=== PATIENT | female | born 1955 | race African-American/Black ===

== ENCOUNTER 2018-07-26 21:29 | Emergency (ER) | payer OTHER, BC ==
[2018-07-26 22:29] VITALS: TEMP 98.1; BMI 43.2
--- NOTE | 2018-07-27 00:03 | PDOC ---
History of Present Illness - General History Source: Patient Exam Limitations: No Limitations - History of Present Illness Initial Comments: 07/27/18 00:38 The patient is a 63 year old female with a past medical history of insulin dependent diabetes, cardiac stent, HTN, and HLD here today for evaluation of dizziness. The patient reports that she got up from a supine position when she suddenly felt the room spinning, cold sweats, began shaking, and felt nauseous. She reports having one similar episode like this current one years and reports being hospitalized for vertigo. She reports that her symptoms are worse when she turns her head especially to the right. Patient denies headache. Denies fever. Denies chest pain, shortness of breath. Denies vomiting, diarrhea, abdominal pain. Allergies: NKA PCP: Fallon Wells <Thuan Lundy - Last Filed: 07/27/18 00:41> <Elsy Fernández - Last Filed: 07/27/18 02:19> - General Chief Complaint: Lightheaded Stated Complaint: DIZZINESS Time Seen by Provider: 07/27/18 00:01 Past History <Thuan Lundy - Last Filed: 07/27/18 00:41> - Past Medical History Cardiac Disorders: Yes (STENT X 1) COPD: No Diabetes: Yes - Surgical History Cardiac Surgery: Yes (1 stent) - Suicide/Smoking/Psychosocial Hx Smoking Status: No Smoking History: Never smoked Number of Cigarettes Smoked Daily: 0 Hx Alcohol Use: No <Elsy Fernánedz - Last Filed: 07/27/18 02:19> - Past Medical History Allergies/Adverse Reactions: Allergies Allergy/AdvReac Type Severity Reaction Status Date / Time No Known Allergies Allergy Verified 07/26/18 22:29 Home Medications: Ambulatory Orders Allopurinol [Zyloprim -] 100 mg PO DAILY 08/14/12 Insulin (LOG) Aspart [NovoLOG -] 0 unit SQ PRN 08/14/12 Insulin Detemir [Levemir Flexpen] 60 unit SQ AM 08/14/12 Aspirin [Aspirin EC] 325 mg PO DAILY 10/14/12 Atenolol [Tenormin -] 25 mg PO DAILY 10/14/12 Insulin (Levemir) [Levemir Flexpen -] 50 units SQ HS 10/14/12 Isoniazid 300 mg PO DAILY 10/14/12 Pyridoxine HCl 50 mg PO DAILY 10/14/12 Simvastatin [Zocor -] 20 mg PO HS 10/14/12 metFORMIN HCL [Glucophage] 1,000 mg PO BID 10/14/12 Enalapril Maleate [Vasotec -] 10 mg PO DAILY 03/10/13 Meclizine HCl [Antivert -] 25 mg PO TID PRN #15 tablet 07/27/18 Review of Systems - Review of Systems Able to Perform ROS?: Yes Comments:: 07/27/18 00:38 GENERAL/CONSTITUTIONAL: +diaphoresis. No fever or chills. No weakness. HEAD, EYES, EARS, NOSE AND THROAT: No change in vision. No ear pain or discharge. No sore throat. GASTROINTESTINAL: +nausea. No vomiting, diarrhea or constipation. GENITOURINARY: No dysuria, frequency, or change in urination. CARDIOVASCULAR: No chest pain or shortness of breath. RESPIRATORY: No cough, wheezing, or hemoptysis. MUSCULOSKELETAL: No joint or muscle swelling or pain. No neck or back pain. SKIN: No rash NEUROLOGIC: +vertigo. No headache, loss of consciousness, or change in strength/ sensation. ENDOCRINE: No increased thirst. No abnormal weight change. HEMATOLOGIC/LYMPHATIC: No anemia, easy bleeding, or history of blood clots. ALLERGIC/IMMUNOLOGIC: No hives or skin allergy. <Thuan Lundy - Last Filed: 07/27/18 00:41> *Physical Exam - Vital Signs Last Vital Signs Temp Pulse Resp BP Pulse Ox 98.1 F 88 18 142/76 98 07/26/18 22:28 07/26/18 22:28 07/26/18 22:28 07/26/18 22:28 07/26/18 22:28 - Physical Exam Comments: 07/27/18 00:41 Constitutional: Awake, alert, oriented. No acute distress. Mild obesity. Head: Normocephalic. Atraumatic Eyes: +right horizontal PERRL. EOMI. Conjunctivae are not pale. ENT: Mucous membranes are moist and intact. Posterior pharynx without exudates or erythema. Uvula midline. Neck: Supple. Full ROM. No lymphadenopathy. Cardiovascular: Regular rate. Regular rhythm. S1, S2 regular. Distal pulses are 2+ and symmetric. Pulmonary/Chest: No evidence of respiratory distress. Clear to auscultation bilaterally No wheezing, rales or rhonchi. Abdominal: Soft and non-distended. There is no tenderness. No rebound, guarding or rigidity. No organomegaly. No palpable masses. Good bowel sounds. Back: No CVA tenderness. Musculoskeletal: No edema. No cyanosis. No clubbing. Full range of motion in all extremities. Nocalf tenderness. Radial/pedal pulses are intact and 2+ bilaterally Skin: Skin is warm and dry. No petechiae. No purpura. Neurological: Alert and oriented to person, place, and time. Cranial nerves II -XII are grossly intact. Normal speech. Strength is grossly symmetric. No sensory deficits. Psychiatric: Good eye contact. Normal interaction, affect and behavior. <Thuan Lundy - Last Filed: 07/27/18 00:41> - Vital Signs Last Vital Signs Temp Pulse Resp BP Pulse Ox 98.1 F 88 18 142/76 98 07/26/18 22:28 07/26/18 22:28 07/26/18 22:28 07/26/18 22:28 07/26/18 22:28 <Elsy Fernández - Last Filed: 07/27/18 02:19> Heart Score/ECG Review - ECG Intrepretation Comment:: 07/27/18 01:39 sinus at 62, 1st degree av block, nl axis, baseline artifact, no acute st changes <Elsy Fernández - Last Filed: 07/27/18 02:19> ED Treatment Course - LABORATORY CBC & Chemistry Diagram: 07/27/18 00:51 07/27/18 00:51 <Elsy Fernández - Last Filed: 07/27/18 02:19> Medical Decision Making - Medical Decision Making 07/27/18 00:21 a/p: 63yo female with a vertiginous episode today -hx of vertigo in the past -Rward gaze with nystagmus -similar to prior episode -no amaya, no paresthesias, dizziness with change in position, no cp/sob -will send labs -hx of dm -will obtain ekg -no focal neuro findings -will give reglan and meclizine -will monitor and reassess 07/27/18 01:45 pt is not orthostatic pt states feeling better requesting to eat- given po challenge states vertigo feeling is improving 07/27/18 02:12 pt ambulatory with minimal support- uses a cane at home feels better no longer with vertigo or nystagmus tolerated po requesting to go home <Elsy Fernández - Last Filed: 07/27/18 02:19> *DC/Admit/Observation/Transfer - Attestations Scribe Attestion: 07/27/18 00:41 Documentation prepared by FABIANA Calles, acting as medical coding instructor for Elsy Fernández DO. <Thuan Lundy - Last Filed: 07/27/18 00:41> - Discharge Dispostion Decision to Admit order: No - Attestations Physician Attestion: 07/27/18 02:19 I, Dr. Elsy Fernández DO, attest that this document has been prepared under my direction and personally reviewed by me in its entirety. I further attest, that it accurately reflects all work, treatment, procedures and medical decision -making performed by me. <Elsy Fernández - Last Filed: 07/27/18 02:19> Diagnosis at time of Disposition: Vertigo - Discharge Dispostion Disposition: HOME Condition at time of disposition: Stable - Prescriptions Prescriptions: Meclizine HCl [Antivert -] 25 mg PO TID PRN #15 tablet PRN Reason: Vertigo - Referrals Referrals: Javi Handley MD [Staff Physician] - - Patient Instructions Printed Discharge Instructions: DI for Vertigo Additional Instructions: Please drink plenty of fluids. Please take all medications as prescribed. Please follow up with the ENT physician for further evaluation of your vertigo. Please also follow up with your PMD in 2-3 days for a repeat evaluation. Please return to the ED with any further concerns or worsening of symptoms.
[2018-07-27] MEDS ORDERED: METOCLOPRAMIDE HCL INJECTION 10 MG/2 ML VIAL IVPUSH ONE (00:19)
[2018-07-27] MEDS ORDERED: MECLIZINE HCL 25 MG TABLET (FP) PO ONE (00:19)
[2018-07-27] MEDS ORDERED: SODIUM CHLORIDE 0.9% 1000 ML INFUS.BAG IV ONE (00:19)
[2018-07-27] MEDS ORDERED: METOCLOPRAMIDE HCL INJECTION 10 MG/2 ML VIAL ONE (00:42)
[2018-07-27] MEDS ORDERED: MECLIZINE HCL 25 MG TABLET (FP) ONE (01:05)
[2018-07-27 01:09] LABS: BASO % 0.3 % (0-2.0); EOS % 0.4 % (0-4.5); HEMATOCRIT 39.1 % (32.4-45.2); HEMOGLOBIN 13.2 GM/dL (10.7-15.3); MCH 26.7 pg (25.7-33.7); MCHC 33.8 g/dl (32.0-36.0); MEAN CELL VOLUME 79.1 fl (80-96); MEAN PLT VOLUME 8.8 fl (7.5-11.1); MONO % 4.5 % (3.8-10.2); NEUT % 79.8 % (42.8-82.8); PLATELET COUNT 229 K/MM3 (134-434); RBC 4.94 M/mm3 (3.60-5.2); RDW 15.5 % (11.6-15.6)
[2018-07-27 01:32] LABS: ALBUMIN 3.4 g/dl (3.4-5.0); ALK PHOS 97 U/L (45-117); ANION GAP 8 MMOL/L (8-16); BILIRUBIN,TOTAL 0.5 mg/dL (0.2-1); BLOOD UREA NITROGEN 16 mg/dL (7-18); CHLORIDE 105 mmol/L (98-107); CO2 25 mmol/L (21-32); CREATININE 0.7 mg/dL (0.55-1.3); GLUCOSE,RANDOM 181 mg/dL (74-106); MAGNESIUM 1.6 mg/dL (1.8-2.4); POTASSIUM 4.6 mmol/L (3.5-5.1); SGOT/AST 18 U/L (15-37); SGPT/ALT 21 U/L (13-61); SODIUM 138 mmol/L (136-145); TOT PROT 7.3 g/dl (6.4-8.2)
[2018-07-27] MEDS ORDERED: MAGNESIUM SULF 50% (8.12 MEQ/2 ML-1 GM VIAL) IVPB ONE (01:37)
[2018-07-27] MEDS ORDERED: MAGNESIUM 1GM/D5W - 1 GM/100 ML IVPB IVPB ONE (01:41)
[2018-07-27 02:01] VITALS: BP 145/81; PULSE 81
--- NOTE | 2018-07-27 11:50 | EKG ---
Test Reason : Blood Pressure : / mmHG Vent. Rate : 087 BPM Atrial Rate : 087 BPM P-R Int : 232 ms QRS Dur : 130 ms QT Int : 398 ms P-R-T Axes : 034 039 -09 degrees QTc Int : 478 ms SINUS RHYTHM WITH 1ST DEGREE A-V BLOCK NON-SPECIFIC INTRA-VENTRICULAR CONDUCTION BLOCK ABNORMAL ECG WHEN COMPARED WITH ECG OF 14-AUG-2012 09:35, QUESTIONABLE CHANGE IN QRS DURATION Confirmed by CARINE KATE, ROSE ([id number]) on 07/27/2018 11:50:48 AM Referred By: Confirmed By:RSOE HAWK MD
== END 2018-07-27 02:56 | disposition home or self-care (01) ==
LOC: JER 21:29
PROC: 3E033GC Introduction of Other Therapeutic Substance into Peripheral Vein, Percutaneous Approach (ICD-10-PCS; principal; 2018-07-26)
PROC: 3E033GC Introduction of Other Therapeutic Substance into Peripheral Vein, Percutaneous Approach (ICD-10-PCS; 2018-07-26)
DX: R42 Dizziness and giddiness (principal); I25.10 Atherosclerotic heart disease of native coronary artery without angina pectoris; I10 Essential (primary) hypertension; Z95.5 Presence of coronary angioplasty implant and graft; E11.9 Type 2 diabetes mellitus without complications; Z79.4 Long term (current) use of insulin; E78.5 Hyperlipidemia, unspecified
CPT/HCPCS: 36415; 80053; 82550; 83735; 84484; 85025; 93005; 93010; 99281-25; J7030

== ENCOUNTER 2019-01-12 14:01 | Emergency (ER) | payer OTHER, BC ==
[2019-01-12 14:08] VITALS: BP 132/60; PULSE 79; TEMP 97.6; BMI 43.2
--- NOTE | 2019-01-12 14:09 | PDOC ---
Rapid Medical Evaluation Time Seen by Provider: 01/12/19 14:05 Medical Evaluation: Allergies Allergy/AdvReac Type Severity Reaction Status Date / Time No Known Allergies Allergy Verified 01/12/19 14:06 01/12/19 14:06 Patient presents to ED with complaints of: left flank pain x 3 days worse this am, no other complaints , hx of kidney stones w/ lithotripsy, seen bt dat in the past, worse with movement Patient on brief exam: no cva tenderness, left low back pain and mild sciatica tenderness I have ordered: labs urine, Patient to proceed to the ED Discharge Disposition - Diagnosis Left-sided back pain - Referrals - Patient Instructions - Post Discharge Activity
[2019-01-12 14:52] LABS: BASO % 0.5 % (0-2.0); EOS % 1.6 % (0-4.5); HEMATOCRIT 38.5 % (32.4-45.2); HEMOGLOBIN 13.2 GM/dL (10.7-15.3); LYMPH % 24.5 % (8-40); MCH 27.2 pg (25.7-33.7); MCHC 34.4 g/dl (32.0-36.0); MEAN CELL VOLUME 78.9 fl (80-96); MEAN PLT VOLUME 8.4 fl (7.5-11.1); MONO % 7.1 % (3.8-10.2); NEUT % 66.3 % (42.8-82.8); PLATELET COUNT 248 K/MM3 (134-434); RBC 4.88 M/mm3 (3.60-5.2); RDW 15.9 % (11.6-15.6); WHITE BLOOD COUNT 9.1 K/mm3 (4.0-10.0)
[2019-01-12 15:10] LABS: ALBUMIN 3.5 g/dl (3.4-5.0); ALK PHOS 106 U/L (45-117); ANION GAP 8 MMOL/L (8-16); CALCIUM 9.7 mg/dL (8.5-10.1); CHLORIDE 103 mmol/L (98-107); CO2 28 mmol/L (21-32); CREATININE 0.7 mg/dL (0.55-1.3); GLUCOSE,RANDOM 133 mg/dL (74-106); POTASSIUM 4.6 mmol/L (3.5-5.1); SGOT/AST 18 U/L (15-37); SGPT/ALT 22 U/L (13-61); SODIUM 139 mmol/L (136-145); TOT PROT 7.2 g/dl (6.4-8.2)
--- NOTE | 2019-01-12 15:10 | PDOC ---
History of Present Illness - General Chief Complaint: Pain, Acute Stated Complaint: horrific pain in left side Time Seen by Provider: 01/12/19 14:05 History Source: Patient Exam Limitations: No Limitations - History of Present Illness Initial Comments: 01/12/19 16:35 64 yo F with a hx of nephrolithiasis, DM (on insulin), and CAD (s/p 2 stents; followed by Dr. Hines with recent stress test normal within 1 year) presents to the emergency department with left flank pain that has been ongoing for 3 days since her return from a cruise ship last week that experienced rough water. Per the patient, the pain feels similar to her previous kidney stone 10 years ago. The pain is located in the left flank without radiation and is exacerbated with movement. Denies the following: fever, chills, nausea, vomiting , chest pain, SOB, abdominal pain, dysuria, hematuria, diarrhea, hematochezia, leg pain/swelling, and traumatic msk event. Endorses increased urinary frequency. Allergies: NKDA Past History - Past Medical History Allergies/Adverse Reactions: Allergies Allergy/AdvReac Type Severity Reaction Status Date / Time No Known Allergies Allergy Verified 01/12/19 14:06 Home Medications: Ambulatory Orders Allopurinol [Zyloprim -] 100 mg PO DAILY 08/14/12 Insulin (LOG) Aspart [NovoLOG -] 0 unit SQ PRN 08/14/12 Insulin Detemir [Levemir Flexpen] 60 unit SQ AM 08/14/12 Aspirin [Aspirin EC] 325 mg PO DAILY 10/14/12 Atenolol [Tenormin -] 25 mg PO DAILY 10/14/12 Insulin (Levemir) [Levemir Flexpen -] 50 units SQ HS 10/14/12 Isoniazid 300 mg PO DAILY 10/14/12 Pyridoxine HCl 50 mg PO DAILY 10/14/12 Simvastatin [Zocor -] 20 mg PO HS 10/14/12 metFORMIN HCL [Glucophage] 1,000 mg PO BID 10/14/12 Enalapril Maleate [Vasotec -] 10 mg PO DAILY 03/10/13 Meclizine HCl [Antivert -] 25 mg PO TID PRN #15 tablet 07/27/18 Acetaminophen [Tylenol -] 1,000 mg PO Q6H #30 tablet 01/12/19 Cardiac Disorders: Yes (STENT X 1) COPD: No Diabetes: Yes Kidney Stones: Yes - Surgical History Cardiac Surgery: Yes (1 stent) - Suicide/Smoking/Psychosocial Hx Smoking Status: No Smoking History: Never smoked Number of Cigarettes Smoked Daily: 0 Hx Alcohol Use: No Drug/Substance Use Hx: No Review of Systems - Review of Systems Able to Perform ROS?: Yes Is the patient limited Bahamian proficient: No Constitutional: No: Chills, Diaphoresis, Fever, Other HEENTM: No: Ear Pain, Nose Pain, Throat Pain, Mouth Pain Respiratory: No: Cough, Shortness of Breath, Hemoptysis Cardiac (ROS): No: Chest Pain, Lightheadedness, Palpitations, Syncope, Chest Tightness ABD/GI: No: Constipated, Diarrhea, Nausea, Rectal Bleeding, Vomiting, Tarry Stools : Yes: Frequency, Flank Pain. No: Burning, Dysuria, Hematuria, Incontinence Musculoskeletal: No: Back Pain, Joint Pain, Neck Pain Integumentary: No: Bruising, Erythema, Rash Neurological: No: Headache, Numbness, Tingling, Tremors Psychiatric: No: Change in Appetite Endocrine: No: Unexplained Weight Gain Hematologic/Lymphatic: No: Anemia *Physical Exam - Vital Signs Last Vital Signs Temp Pulse Resp BP Pulse Ox 97.6 F 79 16 132/60 99 01/12/19 14:05 01/12/19 14:05 01/12/19 14:05 01/12/19 14:05 01/12/19 14:05 - Physical Exam General Appearance: Yes: Nourished, Appropriately Dressed. No: Apparent Distress, Intoxicated HEENT: positive: EOMI, NATAN, Normal Voice, Symmetrical, Pharynx Normal, Hearing Grossly Normal. negative: Pale Conjunctivae, Scleral Icterus (R), Scleral Icterus (L), Muffled/Hoarse voice, Pharyngeal Erythema, Tonsillar Exudate, Tonsillar Erythema, Nasal Congestion, Rhinorrhea, Sinus Tenderness, Excessive drooling Neck: positive: Trachea midline, Supple. negative: Tender, Lymphadenopathy (R) , Lymphadenopathy (L), Tender lateral, Tender midline Respiratory/Chest: positive: Lungs Clear, Normal Breath Sounds. negative: Chest Tender, Respiratory Distress, Accessory Muscle Use, Crackles, Rales, Rhonchi, Stridor, Wheezing Cardiovascular: positive: Regular Rhythm, Regular Rate, S1, S2. negative: Systolic Murmur Gastrointestinal/Abdominal: positive: Normal Bowel Sounds, Tender (LLQ), Flat, Soft. negative: Distended, Guarding, Rebound Lymphatic: negative: Adenopathy Musculoskeletal: positive: Normal Inspection, CVA Tenderness (L), Muscle Spasm ( left side lower). negative: CVA Tenderness (R), Vertebral Tenderness Extremity: positive: Normal Capillary Refill, Normal Inspection, Normal Range of Motion. negative: Tender, Swelling, Calf Tenderness Integumentary: positive: Normal Color, Dry, Warm. 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, Fully Oriented, Alert, Normal Mood/ Affect, Normal Response, Motor Strength 09/03 ED Treatment Course - LABORATORY CBC & Chemistry Diagram: 01/12/19 14:27 01/12/19 14:27 - ADDITIONAL ORDERS Additional order review: Laboratory Results 01/12/19 01/12/19 14:27 14:27 Sodium 139 Potassium 4.6 Chloride 103 Carbon Dioxide 28 Anion Gap 8 BUN 14.0 Creatinine 0.7 Est GFR (CKD-EPI)AfAm 106.87 Est GFR (CKD-EPI)NonAf 92.21 Random Glucose 133 H Lactic Acid 1.5 Calcium 9.7 Total Bilirubin 1.0 AST 18 ALT 22 Alkaline Phosphatase 106 Total Protein 7.2 Albumin 3.5 01/12/19 14:27 RBC 4.88 MCV 78.9 L MCHC 34.4 RDW 15.9 H MPV 8.4 Neutrophils % 66.3 Lymphocytes % 24.5 D Monocytes % 7.1 Eosinophils % 1.6 D Basophils % 0.5 Medical Decision Making - Medical Decision Making 64 yo F with a hx of nephrolithiasis, DM (on insulin), and CAD (s/p 2 stents; followed by Dr. Hines with recent stress test normal within 1 year) presents to the emergency department with left flank pain that has been ongoing for 3 days since her return from a cruise ship last week that experienced rough water. Initial vitals: Initial Vital Signs Temp Pulse Resp BP Pulse Ox 97.6 F 79 16 132/60 99 01/12/19 14:05 01/12/19 14:05 01/12/19 14:05 01/12/19 14:05 01/12/19 14:05 Work up ddx: msk spasm vs nephrolithiasis vs colitis vs diverticulitits vs UTI Laboratory Tests 01/12/19 01/12/19 01/12/19 14:27 14:27 14:27 WBC 9.1 RBC 4.88 Hgb 13.2 Hct 38.5 MCV 78.9 L MCH 27.2 MCHC 34.4 RDW 15.9 H Plt Count 248 MPV 8.4 Absolute Neuts (auto) 6.0 Neutrophils % 66.3 Lymphocytes % 24.5 D Monocytes % 7.1 Eosinophils % 1.6 D Basophils % 0.5 Nucleated RBC % 0 Sodium 139 Potassium 4.6 Chloride 103 Carbon Dioxide 28 Anion Gap 8 BUN 14.0 Creatinine 0.7 Est GFR (CKD-EPI)AfAm 106.87 Est GFR (CKD-EPI)NonAf 92.21 Random Glucose 133 H Lactic Acid 1.5 Calcium 9.7 Total Bilirubin 1.0 AST 18 ALT 22 Alkaline Phosphatase 106 Troponin I < 0.02 Total Protein 7.2 Albumin 3.5 Urine Color Urine Appearance Urine pH Ur Specific Watson Urine Protein Urine Glucose (UA) Urine Ketones Urine Blood Urine Nitrite Urine Bilirubin Urine Urobilinogen Ur Leukocyte Esterase 01/12/19 16:03 WBC RBC Hgb Hct MCV MCH MCHC RDW Plt Count MPV Absolute Neuts (auto) Neutrophils % Lymphocytes % Monocytes % Eosinophils % Basophils % Nucleated RBC % Sodium Potassium Chloride Carbon Dioxide Anion Gap BUN Creatinine Est GFR (CKD-EPI)AfAm Est GFR (CKD-EPI)NonAf Random Glucose Lactic Acid Calcium Total Bilirubin AST ALT Alkaline Phosphatase Troponin I Total Protein Albumin Urine Color Yellow Urine Appearance Clear Urine pH 5.5 Ur Specific Watson 1.016 Urine Protein Negative Urine Glucose (UA) Negative Urine Ketones Negative Urine Blood Negative Urine Nitrite Negative Urine Bilirubin Negative Urine Urobilinogen 0.2 Ur Leukocyte Esterase Negative labs within normal limits. CT abdomen and pelvis shows diverticulosis. no stones or infection Patient received cyclobenzaprine and toradol with significant improvement Given lidocaine patch and prescription for tylenol. Patient likely has MSK spasm given symptoms and negative work up with improvement with muscle relaxant. Patient to be discharged. LLQ tenderness resolved on re-examination and able to ambulate on her own volition. Dispo: Discharge *DC/Admit/Observation/Transfer Diagnosis at time of Disposition: Left-sided back pain, Muscle spasm - Discharge Dispostion Disposition: HOME Condition at time of disposition: Improved Decision to Admit order: No - Prescriptions Prescriptions: Acetaminophen [Tylenol -] 1,000 mg PO Q6H #30 tablet - Referrals Referrals: [facility] [place] Group] - Patient Instructions Printed Discharge Instructions: DI for Muscle Spasm Additional Instructions: You were seen in the emergency department for the evaluation of back pain, Your labs were within normal limits. Your imaging did not show acute process. You have a muscle spasm likely secondary to sudden jerking movements. Please take the tylenol as prescribed. 1000 mg every 6 hours as needed for pain for 1 week. Please do not take ibuprofen. Please return to the emergency department if you have worsening symptoms or new concerning symptoms such as burning urination, fevers, and uncontrollable nausea and vomiting. - Post Discharge Activity
[2019-01-12] MEDS ORDERED: KETOROLAC TROMETHAMINE 30 MG/1 ML VIAL IM ONE (15:12)
[2019-01-12] MEDS ORDERED: CYCLOBENZAPRINE HCL 10 MG TABLET (FP) PO ONE (15:36)
[2019-01-12] MEDS ORDERED: KETOROLAC TROMETHAMINE 30 MG/1 ML VIAL ONE (15:49)
[2019-01-12] MEDS ORDERED: CYCLOBENZAPRINE HCL 10 MG TABLET (FP) ONE (15:49)
--- NOTE | 2019-01-12 16:17 | PDOC ---
Documentation entered by Shruthi Lilly SCRIBE, acting as scribe for Jake Tinajero MD. Jake Tinajero MD: This documentation has been prepared by the [employer] Natalie, SCRIBE, under my direction and personally reviewed by me in its entirety. I confirm that the documentation accurately reflects all work, treatment, procedures, and medical decision making performed by me. Attending Attestation - Resident Resident Name: Silvio Alvarez - ED Attending Attestation I have performed the following: I have examined & evaluated the patient, The case was reviewed & discussed with the resident, I agree w/resident's findings & plan, Exceptions are as noted - HPI HPI: 01/12/19 15:47 The patient is a 64-year-old female, with a past medical history of kidney stones and DM, who presents to the ED with 3 days of LT CVA tenderness and increased urinary frequency. Symptoms are consistent with her previous episodes of kidney stones. The patient denies any fevers, chills, nausea, vomiting, diarrhea, or abdominal pain. Denies any dysuria or hematuria. - Physicial Exam PE: 01/12/19 15:47 Vitals: Triage Vital signs reviewed General Appearance: no acute distress, well nourished well developed, Head: Atraumatic, normocephalic Cardiac: Regular rate and rhythm, no murmurs, no rubs, no gallops, Lungs: Clear to auscultation bilateral, good air movement bilaterally, Abdomen: (+)LLQ pain. Soft, nondistended, normal bowel sounds MSK: (+)LT CVA tenderness. Extremities: Full range of motion to all extremities, no cyanosis, clubbing, or edema Skin: Warm and dry, no rashes or lesions, no petechiae Neuro: AOX3; Cranial Nerves 2-12 grossly intact Psych: normal mood, normal affect - Medical Decision Making 01/12/19 16:53 CT abd pelvis IV contrast pending. Dr. Vera to follow up results and reasses
[2019-01-12 16:54] LABS: PH,URINE 5.5 (5.0-8.0); URINE APPEARANCE CLEAR; URINE BILIRUBIN NEGATIVE (NEGATIVE); URINE COLOR YELLOW; URINE GLUCOSE (UA) NEGATIVE (NEGATIVE); URINE KETONE NEGATIVE (NEGATIVE); URINE LEUK ESTERASE NEGATIVE (NEGATIVE); URINE NITRITE NEGATIVE (NEGATIVE); URINE PROTEIN NEGATIVE (NEGATIVE); URINE UROBILINOGEN 0.2 mg/dL (0.2-1.0)
[2019-01-12] MEDS ORDERED: LIDOCAINE 5% TOPICAL PATCH TP ONE (18:10)
[2019-01-12] MEDS ORDERED: LIDOCAINE 5% TOPICAL PATCH ONE (18:18)
[2019-01-12] MEDS ORDERED: LIDOCAINE PATCH REMOVAL MC SCH (22:00)
--- NOTE | 2019-01-13 15:07 | EKG ---
Test Reason : Blood Pressure : / mmHG Vent. Rate : 074 BPM Atrial Rate : 074 BPM P-R Int : 234 ms QRS Dur : 112 ms QT Int : 382 ms P-R-T Axes : 049 019 -01 degrees QTc Int : 424 ms SINUS RHYTHM WITH 1ST DEGREE A-V BLOCK LEFT ATRIAL ENLARGEMENT RIGHT BUNDLE BRANCH BLOCK ABNORMAL ECG Confirmed by MD JOHNSON, DECLAN ([id number]) on 01/13/2019 3:06:54 PM Referred By: Confirmed By:DECLAN ORNELAS MD
== END 2019-01-12 18:39 | disposition home or self-care (01) ==
LOC: JER 14:01
PROC: 3E0233Z Introduction of Anti-inflammatory into Muscle, Percutaneous Approach (ICD-10-PCS; principal; 2019-01-12)
DX: M54.9 Dorsalgia, unspecified (principal); R25.2 Cramp and spasm; E11.9 Type 2 diabetes mellitus without complications; Z79.4 Long term (current) use of insulin; N20.0 Calculus of kidney
CPT/HCPCS: 36415; 74177-TC; 80053; 81003; 83605; 84484; 85025; 87086; 93005; 93010; 96372; 99283-25

== ENCOUNTER 2021-01-12 16:35 | Emergency (ER) | payer OTHER, BC ==
[2021-01-12 16:47] VITALS: BP 144/54; PULSE 89; TEMP 98; BMI 43.2
[2021-01-12] MEDS ORDERED: KETOROLAC TROMETHAMINE 30 MG/1 ML VIAL IM ONE (17:30)
[2021-01-12] MEDS ORDERED: diazePAM 5 MG TABLET PO ONE (17:30)
[2021-01-12] MEDS ORDERED: diazePAM 5 MG TABLET ONE (18:08)
[2021-01-12] MEDS ORDERED: KETOROLAC TROMETHAMINE 30 MG/1 ML VIAL ONE (18:08)
== END 2021-01-12 19:01 | disposition home or self-care (01) ==
LOC: JERFT 16:35
PROC: 3E023GC Introduction of Other Therapeutic Substance into Muscle, Percutaneous Approach (ICD-10-PCS; principal; 2021-01-12)
DX: M25.552 Pain in left hip (principal)
CPT/HCPCS: 73523-TC-FY; 96372; 99284-25

== ENCOUNTER 2021-01-13 10:43 | Emergency (ER) | payer OTHER, BC ==
[2021-01-13 10:53] VITALS: BP 142/86; PULSE 87; TEMP 98.2; BMI 41.5
== END 2021-01-13 16:04 | disposition home or self-care (01) ==
LOC: JER 10:43
DX: M25.552 Pain in left hip (principal)
CPT/HCPCS: 73700-TC-RT; 99284-25

== ENCOUNTER 2021-01-15 11:25 | Emergency (ER) | payer OTHER, BC ==
[2021-01-15 12:07] VITALS: BP 127/67; PULSE 87; TEMP 97.5; BMI 41.5
== END 2021-01-15 14:01 | disposition home or self-care (01) ==
LOC: JER 11:25
DX: M16.12 Unilateral primary osteoarthritis, left hip (principal)
CPT/HCPCS: 99283-25

== ENCOUNTER 2023-03-04 04:56 | Day surgery (SDC) | payer OTHER ==
[~2023-03-04 04:56] MED LIST: BUPIVACAINE HCL/PF 0.75% 10 ML VIAL NR ONE; LIDOCAINE HCL 1% PRESERVATIVE FREE - 30ML VIAL IJ ONE
[2023-03-04] MEDS ORDERED: BUPIVACAINE HCL/PF 0.75% 10 ML VIAL ONE (07:24)
[2023-03-04] MEDS ORDERED: ACETAMINOPHEN 500 MG TABLET (FP) PO PRN (09:40)
[2023-03-04] MEDS ORDERED: LIDOCAINE HCL 1% PRESERVATIVE FREE - 30ML VIAL IJ ONE (10:32)
[2023-03-04] MEDS ORDERED: BUPIVACAINE HCL/PF 0.75% 10 ML VIAL NR ONE (10:32)
[2023-03-04 11:03] VITALS: RESP 20; TEMP 98
[2023-03-04 11:28] VITALS: BP 130/65; PULSE 75
== END 2023-03-04 11:40 | disposition home or self-care (01) ==
LOC: JASU-SURG 04:56
PROVIDERS: ATTEND Pain Medicine Pain Medicine
PROC: 3E0T33Z Introduction of Anti-inflammatory into Peripheral Nerves and Plexi, Percutaneous Approach (ICD-10-PCS; 2023-03-04)
PROC: 3E0T3BZ Introduction of Anesthetic Agent into Peripheral Nerves and Plexi, Percutaneous Approach (ICD-10-PCS; principal; 2023-03-04 10:45)
DX: M47.896 Other spondylosis, lumbar region (principal)
CPT/HCPCS: 76000-TC-FY

== ENCOUNTER 2023-10-26 11:35 | Inpatient (IN) | payer OTHER ==
[2023-10-26] MEDS ORDERED: ACETAMINOPHEN INJECTION 100 ML IVPB ONE (14:28)
[2023-10-26] MEDS: ACETAMINOPHEN 1000 MG/100 ML BAG IVPB ONE (14:51)
[2023-10-26 14:56] LABS: VENOUS BASE EXCESS -0.1 mmol/L (-2-2); VENOUS O2 SATURATION 52.4 % (70-80); VENOUS PCO2 48.8 mmHg (38-52); VENOUS PH 7.347 (7.310-7.410)
[2023-10-26 14:58] LABS: BASO % 0.2 % (0-2.0); HEMATOCRIT 38.3 % (32.4-45.2); HEMOGLOBIN 13.4 GM/dL (10.7-15.3); LYMPH % 16.1 % (8-40); MCH 27.1 pg (25.7-33.7); MCHC 34.9 g/dl (32.0-36.0); MEAN CELL VOLUME 77.7 fl (80-96); MEAN PLT VOLUME 8.3 fl (7.5-11.1); MONO % 14.3 % (3.8-10.2); NEUT % 69.4 % (42.8-82.8); PLATELET COUNT 208 10^3/uL (134-434); RBC 4.93 M/mm3 (3.60-5.2); RDW 16.1 % (11.6-15.6); WHITE BLOOD COUNT 6.4 K/mm3 (4.0-10.0)
[2023-10-26 15:03] LABS: INR 1.3 (0.83-1.09); PROTHROMBIN TIME (PATIENT) 14.6 SEC (9.7-13.0)
[2023-10-26 15:06] LABS: ACTIVATED PTT 30.9 SECONDS (25.2-36.5)
[2023-10-26 15:12] LABS: POTASSIUM 5.6 mmol/L (3.5-5.1)
[2023-10-26 15:14] LABS: CALCIUM 8.9 mg/dL (8.5-10.1)
[2023-10-26 15:15] LABS: ALBUMIN 3.5 g/dl (3.4-5.0); BLOOD UREA NITROGEN 18.3 mg/dL (7-18); MAGNESIUM 1.6 mg/dL (1.8-2.4)
[2023-10-26 15:18] LABS: CREATININE 0.9 mg/dL (0.55-1.3); PHOSPHOROUS 3.1 mg/dL (2.5-4.9)
[2023-10-26 15:19] LABS: BILIRUBIN,TOTAL 0.9 mg/dL (0.2-1)
[2023-10-26 15:20] LABS: TOT PROT 7.5 g/dl (6.4-8.2)
[2023-10-26] MEDS: LACTATED RINGERS SOLUTION 1000 ML INFUS.BAG IV ONE (15:30)
[2023-10-26] MEDS ORDERED: MAGNESIUM SULFATE IN WATER 2 GM/50 ML IVPB IVPB ONE (15:40)
[2023-10-26] MEDS: SODIUM CHLORIDE 0.9% 500 ML INFUS.BAG IV ONE (16:47)
[2023-10-26] MEDS: MAGNESIUM SULFATE IN WATER 2 GM/50 ML IVPB IVPB ONE (16:47)
[2023-10-26 17:10] LABS: POTASSIUM 3.9 mmol/L (3.5-5.1)
[2023-10-26 17:11] LABS: CALCIUM 8.4 mg/dL (8.5-10.1)
[2023-10-26 17:12] LABS: BLOOD UREA NITROGEN 18.6 mg/dL (7-18)
[2023-10-26 17:15] LABS: CREATININE 0.7 mg/dL (0.55-1.3)
[2023-10-26] MEDS: REMDESIVIR 200 MG in SODIUM CHLORIDE 250 ML IVPB ONE (18:08)
[2023-10-26 20:32] LABS: EPI CELLS 36 /uL (0-25.1); HYALINE CASTS 1 /uL (0-3.1); URINE APPEARANCE CLEAR; URINE BACTERIA 99 /uL (0-1359); URINE BILIRUBIN NEGATIVE (NEGATIVE); URINE COLOR YELLOW; URINE GLUCOSE (UA) NEGATIVE (NEGATIVE); URINE KETONE 2+ (NEGATIVE); URINE LEUK ESTERASE NEGATIVE (NEGATIVE); URINE NITRITE NEGATIVE (NEGATIVE); URINE PROTEIN 1+ (NEGATIVE); URINE RBC 16 /uL (0-23.9); URINE WBC 12 /uL (0-25.8)
[2023-10-26] MEDS: LACTATED RINGERS SOLUTION 1,000 ML/1,000 ML INFUS.BAG IV SCH (20:45)
[2023-10-27 01:41] VITALS: BMI 42.4
[2023-10-27] MEDS: ACETAMINOPHEN 1000 MG/100 ML BAG IVPB PRN (02:57)
[2023-10-27] MEDS: SODIUM CHLORIDE 0.45% 1,000 ML IV SCH (02:57)
[2023-10-27] MEDS: INSULIN ASPART SLIDING SCALE (NOVOLOG) 1 VIAL SQ SCH (06:55)
[2023-10-27 07:03] LABS: BASO % 0.4 % (0-2.0); EOS % 0.1 % (0-4.5); HEMATOCRIT 33.4 % (32.4-45.2); HEMOGLOBIN 12.2 GM/dL (10.7-15.3); LYMPH % 26.4 % (8-40); MCH 28.1 pg (25.7-33.7); MCHC 36.5 g/dl (32.0-36.0); MEAN PLT VOLUME 8.2 fl (7.5-11.1); MONO % 12.6 % (3.8-10.2); NEUT % 60.5 % (42.8-82.8); PLATELET COUNT 163 10^3/uL (134-434); RBC 4.33 M/mm3 (3.60-5.2); RDW 15.6 % (11.6-15.6); WHITE BLOOD COUNT 4.9 K/mm3 (4.0-10.0)
[2023-10-27 07:10] LABS: CALCIUM 7.6 mg/dL (8.5-10.1)
[2023-10-27 07:11] LABS: ALBUMIN 2.8 g/dl (3.4-5.0); BLOOD UREA NITROGEN 11.2 mg/dL (7-18)
[2023-10-27 07:13] LABS: CREATININE 0.5 mg/dL (0.55-1.3)
[2023-10-27 07:15] LABS: BILIRUBIN,TOTAL 0.6 mg/dL (0.2-1); TOT PROT 6.1 g/dl (6.4-8.2)
[2023-10-27] MEDS: ENOXAPARIN NA (PORCINE) 40 MG/0.4 ML DISP.SYRIN SQ SCH (10:27)
[2023-10-27] MEDS: ALLOPURINOL 100 MG TABLET (FP) PO SCH (10:27)
[2023-10-27] MEDS: ATENOLOL 25 MG TABLET (FP) PO SCH (11:47)
[2023-10-27] MEDS: ASPIRIN 325 MG ENTERIC COATED TABLET (FP) PO SCH (11:47)
[2023-10-27 16:05] LABS: N-TERMINAL BNP 57.7 pg/ml (5-125)
[2023-10-27] MEDS: REMDESIVIR 100 MG in SODIUM CHLORIDE 250 ML IVPB SCH (17:24)
[2023-10-28] MEDS ORDERED: INSULIN ASPART SLIDING SCALE (NOVOLOG) 1 VIAL SQ ONE (17:45)
[2023-10-29 06:42] VITALS: PULSE 83
[2023-10-29 09:15] LABS: BASO % 0.3 % (0-2.0); EOS % 1.1 % (0-4.5); HEMATOCRIT 37.7 % (32.4-45.2); HEMOGLOBIN 13.3 GM/dL (10.7-15.3); LYMPH % 44.4 % (8-40); MCH 27.4 pg (25.7-33.7); MCHC 35.2 g/dl (32.0-36.0); MEAN CELL VOLUME 77.8 fl (80-96); NEUT % 45.2 % (42.8-82.8); PLATELET COUNT 182 10^3/uL (134-434); RBC 4.84 M/mm3 (3.60-5.2); RDW 15.8 % (11.6-15.6); WHITE BLOOD COUNT 4.2 K/mm3 (4.0-10.0)
[2023-10-29 09:41] LABS: POTASSIUM 4.1 mmol/L (3.5-5.1)
[2023-10-29 09:46] LABS: BLOOD UREA NITROGEN 9.2 mg/dL (7-18); CALCIUM 8.1 mg/dL (8.5-10.1)
[2023-10-29 09:49] LABS: ALBUMIN 2.9 g/dl (3.4-5.0)
[2023-10-29 09:53] LABS: CREATININE 0.6 mg/dL (0.55-1.3)
[2023-10-29 09:54] LABS: TOT PROT 6.5 g/dl (6.4-8.2)
[2023-10-29 09:58] LABS: BILIRUBIN,TOTAL 0.5 mg/dL (0.2-1)
[2023-10-29 14:58] VITALS: BP 137/73; RESP 17; TEMP 97.9
[2023-10-30] MEDS ORDERED: ASPIRIN 81 MG CHEWABLE TABLETS PO SCH (10:00)
== END 2023-10-29 15:38 | disposition home or self-care (01) | DRG 178 ==
LOC: JER 11:35 → JERBED 16:19 → J7W 23:15 → OBSVTOIN 10-27 00:20
PROVIDERS: ADMIT Internal Medicine; ATTEND Internal Medicine
PROC: XW033E5 Introduction of Remdesivir Anti-infective into Peripheral Vein, Percutaneous Approach, New Technology Group 5 (ICD-10-PCS; principal; 2023-10-27)
DX: U07.1 COVID-19 (principal); M62.82 Rhabdomyolysis; Z68.41 Body mass index [BMI] 40.0-44.9, adult; E78.5 Hyperlipidemia, unspecified; I11.0 Hypertensive heart disease with heart failure; I25.10 Atherosclerotic heart disease of native coronary artery without angina pectoris; I50.9 Heart failure, unspecified; E66.01 Morbid (severe) obesity due to excess calories; E83.42 Hypomagnesemia; E11.9 Type 2 diabetes mellitus without complications
CPT/HCPCS: 0241U-QW; 36415; 71045-TC-FY; 72170-TC-FY; 73521-TC-FY; 80048; 80053; 80061; 81003; 82550; 82553; 82728; 82803; 82962; 83036; 83735; 83880; 84100; 84443; 84484; 85025; 85379; 85610; 85730; 86140; 87086; 93005; 93010; 97116-GP; 97161-GP; 99291; G0378; J0131; J0248

== ENCOUNTER 2024-10-19 11:16 | Emergency (ER) | payer OTHER ==
[2024-10-19 11:25] VITALS: BP 138/73; PULSE 89; RESP 16; TEMP 97.8; BMI 40.7
[2024-10-19] MEDS ORDERED: ACETAMINOPHEN 500 MG TABLET (FP) ONE (12:08)
[2024-10-19] MEDS: ACETAMINOPHEN 500 MG TABLET (FP) PO ONE (12:20)
== END 2024-10-19 13:53 | disposition home or self-care (01) ==
LOC: JER 11:16 → JERFT 11:16
DX: M16.11 Unilateral primary osteoarthritis, right hip (principal); M54.50 Low back pain, unspecified; M25.551 Pain in right hip
CPT/HCPCS: 72100-TC-FY; 73502-TC-RT-FY; 99283-25